=== PATIENT | male | born 1985 | race Caucasian/White ===

== ENCOUNTER 2018-01-28 09:26 | Outpatient (CLI) | payer MEDICAID | END 2018-01-28 09:27 | disposition short-term general hospital (02) | LOC: EMS 09:26 | PROVIDERS: ATTEND Surgery | DX: F41.9 Anxiety disorder, unspecified (principal); R09.89 Other specified symptoms and signs involving the circulatory and respiratory systems | CPT/HCPCS: A0425; A0429; A0999 ==

== ENCOUNTER 2018-05-26 11:30 | Emergency (ER) | payer MEDICAID ==
--- NOTE | 2018-05-26 12:51 | ED Physician Documentation ---
History of Present Illness - Stated complaint Stated Complaint: SWOLLEN THROAT - Chief complaint Chief Complaint: Heent - History obtained from History obtained from: Patient (He has had 2 weeks of migratory lymphadenopathy starting in the left axilla. He is also had a backache and some throat pain as well. He has had some night sweats but no weight loss.) Review of Systems Constitutional: reports: Sweats. denies: Fever, Chills, Fatigue, Weight Loss Cardiac: denies: Chest pain / pressure, Palpitations Respiratory: denies: Dyspnea, Cough PD PAST MEDICAL HISTORY - Past Medical History Past Medical History: No Cardiovascular: None Respiratory: None Neuro: None Endocrine/Autoimmune: None GI: None : None HEENT: None Psych: Depression, Anxiety Musculoskeletal: None Derm: None - Past Surgical History Past Surgical History: No General: Gastric surgery, Hiatal hernia repair HEENT: Other - Present Medications Home Medications: Ambulatory Orders Medication Instructions Recorded Confirmed No Known Home Medications 05/26/18 05/26/18 - Allergies Allergies/Adverse Reactions: Allergies Allergy/AdvReac Type Severity Reaction Status Date / Time No Known Drug Allergies Allergy Verified 05/26/18 11:36 - Social History Does the pt smoke?: Yes Smoking Status: Current every day smoker Does the pt drink ETOH?: Yes Does the pt have substance abuse?: Yes Substance Use and Type: Marijuana - Immunizations Immunizations are current?: Yes - POLST Patient has POLST: No PD ED PE NORMAL - Vitals Vital signs reviewed: Yes - General General: Alert and oriented X 3, No acute distress - HEENT HEENT: PERRL, EOMI, Pharynx benign - Neck Neck: Supple, no meningeal sign, No bony TTP, Other (There is really no notable adenopathy in any of the cervical areas, auricular, or either axilla.) - Abdomen Abdomen: Non tender - Derm Derm: No rash - Neuro Neuro: Alert and oriented X 3, Normal speech Results - Vitals Vitals: Vital Signs - 24 hr 05/26/18 11:33 Temperature 36 C L Heart Rate 87 Respiratory 16 Rate Blood Pressure 120/82 H O2 Saturation 97 Oxygen O2 Source Room air - Labs Labs: Laboratory Tests 05/26/18 05/26/18 05/26/18 12:53 12:53 13:27 WBC 10.7 RBC 5.12 Hgb 16.0 Hct 45.8 MCV 89.4 MCH 31.2 H MCHC 34.9 RDW 13.2 Plt Count 286 MPV 7.5 Neut # (Auto) 7.6 H Lymph # (Auto) 2.1 [place] # (Auto) 0.7 Eos # (Auto) 0.2 Baso # (Auto) 0.0 Absolute Nucleated RBC 0.00 Nucleated RBC % 0.0 Sodium 136 Potassium 4.1 Chloride 100 L Carbon Dioxide 28 Anion Gap 8.0 BUN 14 Creatinine 0.9 Estimated GFR (MDRD) 96 Glucose 96 Calcium 9.3 Total Bilirubin 0.5 AST 23 ALT 24 Alkaline Phosphatase 64 Total Protein 7.8 Albumin 4.9 Globulin 2.9 Albumin/Globulin Ratio 1.7 Lipase 35 Group A Strep Rapid Negative Departure - Departure Disposition: 01 Home, Self Care Clinical Impression: Sore throat, Lymphadenopathy Condition: Good Instructions: ED Pharyngitis Viral Report Pending Comments: Ibuprofen as needed for pain. Return for new or worsening symptoms. Follow-up with your physician, next available appointment.
[2018-05-26 13:00] LABS: BASOPHILS % (AUTO) 0.4 %; EOSINOPHILS # (AUTO) 0.2 10^3/uL (0.0-0.7); EOSINOPHILS % (AUTO) 1.8 %; LYMPHOCYTES # (AUTO) 2.1 10^3/uL (1.5-3.5); LYMPHOCYTES % (AUTO) 19.9 %; MEAN CORPUSCULAR HEMOGLOBIN 31.2 pg (27.0-31.0); MEAN CORPUSCULAR HGB CONC 34.9 g/dL (32.0-36.0); MEAN CORPUSCULAR VOLUME 89.4 fL (80.0-94.0); MEAN PLATELET VOLUME 7.5 fL (7.4-11.4); MONOCYTES # (AUTO) 0.7 10^3/uL (0.0-1.0); MONOCYTES % (AUTO) 6.9 %; NEUTROPHILS # (AUTO) 7.6 10^3/uL (1.5-6.6); PLT - PLATELET COUNT 286 10^3/uL (130-450); RED BLOOD COUNT 5.12 10^6/uL (4.70-6.10); RED CELL DISTRIBUTION WIDTH 13.2 % (12.0-15.0); WHITE BLOOD COUNT 10.7 x10^3/uL (4.8-10.8)
[2018-05-26 13:12] LABS: ALBUMIN 4.9 g/dL (3.2-5.5); ALBUMIN/GLOBULIN RATIO 1.7 (1.0-2.2); BILIRUBIN,TOTAL 0.5 mg/dL (0.2-1.0); CALCIUM 9.3 mg/dL (8.5-10.3); CREATININE 0.9 mg/dL (0.6-1.2); TOTAL PROTEIN 7.8 g/dL (6.7-8.2)
[2018-05-26 14:17] VITALS: BP 149/65
== END 2018-05-26 14:20 | disposition home or self-care (01) ==
LOC: ED 11:30
DX: J02.9 Acute pharyngitis, unspecified (principal); R59.0 Localized enlarged lymph nodes; F17.200 Nicotine dependence, unspecified, uncomplicated
CPT/HCPCS: 36415; 80053; 83690; 85025; 87070; 87430; 99282; 99283

== ENCOUNTER 2018-11-01 09:27 | Emergency (ER) | payer MEDICAID ==
[2018-11-01] MEDS ORDERED: LORazepam 1 MG TABLET PO STA (09:51)
--- NOTE | 2018-11-01 09:54 | ED Physician Documentation ---
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 denies: Vomiting, Constipation, Diarrhea : denies: Dysuria, Frequency Skin: denies: Rash Musculoskeletal: denies: Neck pain, Back pain, Extremity pain Neurologic: denies: Generalized weakness, Focal weakness, Numbness Psychiatric: reports: Anxiety. denies: Depressed, Suicidal, Homicidal PD PAST MEDICAL HISTORY - Past Medical History Past Medical History: Yes Cardiovascular: None Respiratory: None Neuro: None Endocrine/Autoimmune: None GI: None : None HEENT: None Psych: Depression, Anxiety Musculoskeletal: None Derm: None - Past Surgical History Past Surgical History: No General: Gastric surgery, Hiatal hernia repair HEENT: Other - Present Medications Home Medications: Ambulatory Orders Medication Instructions Recorded Confirmed Lorazepam [Ativan] 1 mg PO Q6HR PRN #12 tablet 11/01/18 - Allergies Allergies/Adverse Reactions: Allergies Allergy/AdvReac Type Severity Reaction Status Date / Time No Known Drug Allergies Allergy Verified 05/26/18 11:36 - Social History Does the pt smoke?: Yes Smoking Status: Current every day smoker Does the pt drink ETOH?: Yes Does the pt have substance abuse?: Yes Substance Use and Type: Meth - Immunizations Immunizations are current?: Yes - POLST Patient has POLST: No PD ED PE NORMAL - Vitals Vital signs reviewed: Yes (hypertensive mild ) - General General: Alert and oriented X 3, Well developed/nourished, Other (The patient appears anxious ) - HEENT HEENT: Atraumatic, PERRL, EOMI, Ears normal, Moist mucous membranes, Pharynx benign - Neck Neck: Supple, no meningeal sign, No bony TTP - Cardiac Cardiac: RRR, No murmur - Respiratory Respiratory: No respiratory distress, Clear bilaterally - Abdomen Abdomen: Soft, Non tender - Back Back: No CVA TTP, No spinal TTP - Derm Derm: Normal color, Warm and dry, No rash - Extremities Extremities: No deformity, No edema - Neuro Neuro: Alert and oriented X 3, service line coordinator 2-12 intact, No motor deficit, No sensory deficit, Normal speech Eye Opening: Spontaneous Motor: Obeys Commands Verbal: Oriented GCS Score: 15 - Psych Psych: Normal affect, Other (mood is anxious) Results - Vitals Vitals: Vital Signs - 24 hr 11/01/18 09:31 Temperature 37 C Heart Rate 92 Respiratory 18 Rate Blood Pressure 147/93 H O2 Saturation 100 Oxygen O2 Source Room air - EKG (time done) 0938 Rate: Rate (enter#) (83) Rhythm: NSR Ischemia: Normal ST segments Compare to prior EKG: Old EKG unavailable Computer interpretation: Agree with computer PD MEDICAL DECISION MAKING - ED course Complexity details: reviewed old records, re-evaluated patient, considered differential, d/w patient, d/w family ED course: 33-year-old male appears anxious and is having symptoms consistent with what he has had previously with panic attack. Usually he is able to have his calm him down and this morning his symptoms are essentially out of control. He is come to the emergency department we are providing him with some Ativan.33-year-old male appears anxious and is having symptoms consistent with what he has had previously with panic attack. Usually he is able to have his calm him down and this morning his symptoms are essentially out of control. He has come to the emergency department we are providing him with some Ativan. Departure - Departure Disposition: 01 Home, Self Care Clinical Impression: Anxiety Condition: Stable Instructions: ED Panic Attack, ED Stress React Follow-Up: [facility] [Provider Group] Prescriptions: Lorazepam [Ativan] 1 mg PO Q6HR PRN #12 tablet PRN Reason: Anxiety
[2018-11-01 11:03] VITALS: BP 147/85
== END 2018-11-01 11:02 | disposition home or self-care (01) ==
LOC: ED 09:27
DX: F41.9 Anxiety disorder, unspecified (principal); F17.200 Nicotine dependence, unspecified, uncomplicated
CPT/HCPCS: 93005; 99282; 99283; J8499

== ENCOUNTER 2019-01-21 18:40 | Emergency (ER) | payer MEDICAID ==
--- NOTE | 2019-01-21 19:10 | ED Physician Documentation ---
PD HPI SKIN - Stated complaint Stated Complaint: MALE - Chief complaint Chief Complaint: Wound - History obtained from History obtained from: Patient (A few years ago he developed what sounds like a perirectal abscess. He had some diarrhea last week and has had increasing rectal pain for the last 4 days. Now it is severe. No fevers or chills.) Review of Systems Constitutional: reports: Reviewed and negative Throat: reports: Reviewed and negative Cardiac: reports: Reviewed and negative Respiratory: reports: Reviewed and negative PD PAST MEDICAL HISTORY - Past Medical History Cardiovascular: None Respiratory: None Neuro: None Endocrine/Autoimmune: None GI: None : None HEENT: None Psych: Depression, Anxiety Musculoskeletal: None Derm: None - Past Surgical History Past Surgical History: No General: Gastric surgery, Hiatal hernia repair HEENT: Other - Present Medications Home Medications: Ambulatory Orders Medication Instructions Recorded Confirmed Lorazepam [Ativan] 1 mg PO Q6HR PRN #12 tablet 11/01/18 Amox/Clav 875/125 [Augmentin] 1 each PO Q12H #20 tablet 01/21/19 Lidocaine/Hydrocortisone AC 1 each RC QID #20 kit 01/21/19 [Lidocaine-Hc 2-2% Cream Kit] Oxycodone HCl/Acetaminophen 1 - 2 each PO Q6H PRN #14 tablet 01/21/19 [Percocet 5-325 mg Tablet] - Allergies Allergies/Adverse Reactions: Allergies Allergy/AdvReac Type Severity Reaction Status Date / Time No Known Drug Allergies Allergy Verified 01/21/19 18:47 - Social History Does the pt smoke?: Yes Smoking Status: Current every day smoker Does the pt drink ETOH?: Yes Does the pt have substance abuse?: Yes - Immunizations Immunizations are current?: Yes - POLST Patient has POLST: No PD ED PE NORMAL - Vitals Vital signs reviewed: Yes - General General: Alert and oriented X 3, No acute distress - Abdomen Abdomen: Soft, Non tender - Rectal Rectal: Other (There is a lot of tenderness at 12:00. There is no obvious fullness or abscess. This could be either a poorly seen fissure versus very early abscess/phlegmon.) - Derm Derm: No rash Results - Vitals Vitals: Vital Signs - 24 hr 01/21/19 18:47 Temperature 36.8 C Heart Rate 93 Respiratory 17 Rate Blood Pressure 167/110 H O2 Saturation 96 Oxygen O2 Source Room air PD MEDICAL DECISION MAKING - ED course ED course: He has tenderness at 12:00 on rectal exam. This could be a fissure, or very early abscess. I do not feel anything to incise and drain at this point. We agreed we would start antibiotics and IF HE worsened would return for repeat evaluation and potential I&D. Departure - Departure Disposition: Home, Self Care Clinical Impression: Rectal fissure Condition: Good Record reviewed to determine appropriate education?: Yes Instructions: ED Fissure Anal Ch Prescriptions: Amox/Clav 875/125 [Augmentin] 1 each PO Q12H #20 tablet Lidocaine/Hydrocortisone AC [Lidocaine-Hc 2-2% Cream Kit] 1 each RC QID #20 kit Oxycodone HCl/Acetaminophen [Percocet 5-325 mg Tablet] 1 - 2 each PO Q6H PRN #14 tablet PRN Reason: pain Comments: Return immediately if you develop a fever, or if more of a lump forms or generally worsen, follow-up with your doctor on Friday. Do not drink or drive while taking narcotic pain medication. Note that many narcotic pain relievers also contain Tylenol/acetaminophen. Please ensure that your total dose of acetaminophen from all sources does not exceed 3 g (3000 mg) per day. You may get constipated while on this medication. Take a stool softener such as Colace twice a day while you are on it. Also add an [id number] laxative such as senna or MiraLAX on any day that you do not have a bowel movement. If you received a narcotic pain medication or sedative while in the emergency department, do not drive for the next 24 hours. Your blood pressure was elevated today on check into the emergency department. This does not mean that you have hypertension, it is a common phenomenon to come to the emergency department and have elevated blood pressure. I recommend that you see your primary care physician within the week to have it rechecked when you are feeling better. Forms: Activity restrictions
[2019-01-21 19:23] VITALS: BP 130/93
== END 2019-01-21 19:24 | disposition home or self-care (01) ==
LOC: ED 18:40
DX: K60.2 Anal fissure, unspecified (principal); R03.0 Elevated blood-pressure reading, without diagnosis of hypertension; F17.200 Nicotine dependence, unspecified, uncomplicated
CPT/HCPCS: 99283